=== PATIENT | male | born 1970 | race Caucasian/White ===

== ENCOUNTER 2024-05-02 05:54 | Emergency (ER) | payer SELFPAY ==
[~2024-05-02] VITALS: Ht 175.3 cm; Wt 90.7 kg
[2024-05-02 06:01] VITALS: BP 113/69; PULSE 71; RESP 18; TEMP 98; O2SAT 99
[2024-05-02 06:09] VITALS: BP 113/69; PULSE 71; RESP 18; TEMP 98; O2SAT 99
== END 2024-05-02 06:18 ==
LOC: MED 05:54
DX: Z02.89 Encounter for other administrative examinations (principal); V49.9XXA Car occupant (driver) (passenger) injured in unspecified traffic accident, initial encounter; Y93.89 Activity, other specified; Y92.89 Other specified places as the place of occurrence of the external cause; Y99.8 Other external cause status
CPT/HCPCS: 99283